=== PATIENT | female | born 1965 | race African-American/Black ===

== ENCOUNTER 2023-05-03 08:34 | Emergency (ER) | payer OTHER ==
[~2023-05-03] VITALS: Ht 165.1 cm; Wt 69.0 kg
[2023-05-03 08:40] VITALS: O2SAT 100
[2023-05-03] MEDS: IBUPROFEN 600MG TABLET PO ONE (09:45)
[2023-05-03] MEDS: ACETAMINOPHEN 325MG TABLET PO ONE (09:45)
[2023-05-03] MEDS: PREDNISONE 20MG TABLET PO ONE (11:45)
[2023-05-03] MEDS: HYDROCODONE/ACETAMINOPHEN 5/325MG TABLET PO ONE (11:45)
[2023-05-03] MEDS ORDERED: P50 MT (12:59)
[2023-05-03] MEDS ORDERED: IBUP-1523 MT (12:59)
[2023-05-03] MEDS ORDERED: HYDR-4001 MT (12:59)
[2023-05-03 13:27] VITALS: BP 145/85; PULSE 88; RESP 18; TEMP 97.8
== END 2023-05-03 13:29 | disposition home or self-care (01) ==
LOC: ER 08:34
DX: M54.50 Low back pain, unspecified (principal); M46.56 Other infective spondylopathies, lumbar region
CPT/HCPCS: 99284; 72100; J7512